=== PATIENT | female | born 1985 | race Two or more races ===

== ENCOUNTER 2017-11-03 09:09 | Emergency (ER) | payer SELFPAY ==
[~2017-11-03] VITALS: Ht 167.6 cm; Wt 83.0 kg
[2017-11-03 10:05] LABS: Urine Bacteria FEW /hpf (None Seen); Urine Blood 1+ /uL (Negative); Urine Mucus FEW (None Seen); Urine Specific Gravity 1.013 (1.001-1.035); Urine WBC 3 /hpf (0 - 5)
[2017-11-03 10:30] VITALS: BP 125/69
[2017-11-03] MEDS ORDERED: cefTRIAXone SOD 1,000 MG VL IM ONE (10:45)
== END 2017-11-03 11:12 | disposition home or self-care (01) ==
LOC: ER 09:09
DX: J18.9 Pneumonia, unspecified organism (principal)
CPT/HCPCS: 71046; 81001; 81025; 96372; 99285; J0696